=== PATIENT | female | born 1955 | race Caucasian/White ===

== ENCOUNTER 2024-02-09 16:24 | Emergency (ER) | payer MEDICARE ==
[2024-02-09] VITALS (36 sets, daily range): BP systolic 100–175; BP diastolic 38–127
[~2024-02-09] VITALS: Ht 160 cm; Wt 97.5 kg
[2024-02-09 18:01] LABS: BASO% 0.6 % (0-3); EOS% 0.6 % (0-8); IMMATURE GRANULOCYTES 1.3 % (0.0-5.0); LYMPH% 23.2 % (15-41); MEAN CELL VOLUME 104.9 fL CALC (80.0-100.0); MEAN CORPUSCULAR HGB 31.5 pG CALC (26.0-32.0); MONO% 6.5 % (2-13); NEUT# 1.05 thou/uL (2.00-7.15); NEUT% 67.8 % (42-76); PLATELET COUNT 79 thou/uL (130-400)
[2024-02-09 18:02] LABS: HEMOGLOBIN 4.5 g/dl (12.0-16.0); RED BLOOD COUNT 1.43 mill/uL (4.20-5.60)
[2024-02-09] MEDS ORDERED: ONDANSETRON HCl 4 MG/2 ML SDV IV ONE (18:45)
[2024-02-09] MEDS ORDERED: LORazepam 2 MG/ML IV ONE (19:05)
[2024-02-09] MEDS ORDERED: SODIUM CHLORIDE 0.9% 500 ML IV ONE (19:15)
[2024-02-09 20:24] LABS: ALBUMIN 3.2 g/dL (3.2-5.0); BILIRUBIN, TOTAL 1.8 mg/dL (0.02-1.3); CREATININE 1.1 mg/dL (0.5-1.0); POTASSIUM 3.5 mmol/l (3.5-5.1); TOTAL PROTEIN 5.7 g/dL (6.3-8.2)
[2024-02-10] VITALS (8 sets, daily range): BP systolic 139–158; BP diastolic 50–72
[2024-02-10] MEDS ORDERED: CALCIUM GLUCONATE 2 GM in SODIUM CHLORIDE 0.9% 100 ML IV ONE (03:00)
[2024-02-10] MEDS ORDERED: LORazepam 2 MG/ML IV ONE (03:15)
== END 2024-02-10 03:57 | disposition short-term general hospital (02) ==
LOC: ED 16:24
PROVIDERS: Family Medicine; Internal Medicine
PROC: 30233N1 Transfusion of Nonautologous Red Blood Cells into Peripheral Vein, Percutaneous Approach (ICD-10-PCS; principal; 2024-02-09)
PROC: 30233N1 Transfusion of Nonautologous Red Blood Cells into Peripheral Vein, Percutaneous Approach (ICD-10-PCS; 2024-02-09)
DX: D61.818 Other pancytopenia (principal); Z87.891 Personal history of nicotine dependence; R06.02 Shortness of breath; R53.1 Weakness
CPT/HCPCS: J2060; P9016; Q9967